=== PATIENT | female | born 1985 | race Asian ===

== ENCOUNTER 2019-12-19 03:07 | Outpatient (CLI) | payer OTHER, SELFPAY ==
[2019-12-23 12:19] LABS: TB Interpretation Negative (Negative)
== END 2019-12-19 03:27 ==
PROVIDERS: PCP Nurse Practitioner Family; Visit Provider Nurse Practitioner Family
DX: Z87.898 Personal history of other specified conditions (principal)
CPT/HCPCS: 86480

== ENCOUNTER 2020-03-05 15:20 | Outpatient (REF) | payer OTHER, SELFPAY ==
[2020-03-07 01:06] LABS: COVID-19 RT-PCR Result NEGATIVE (Negative)
== END 2020-03-05 15:40 ==
LOC: NCHCN 15:20
PROVIDERS: PCP Nurse Practitioner Family; Visit Provider Nurse Practitioner Family
DX: Z20.828 Contact with and (suspected) exposure to other viral communicable diseases (principal)
CPT/HCPCS: U0003

== ENCOUNTER 2020-12-01 16:20 | Outpatient (REF) | payer OTHER, SELFPAY ==
[2020-12-03 12:40] LABS: COVID-19 RT-PCR UVMMC Result Negative (Negative)
== END 2020-12-01 16:21 | disposition home or self-care (01) ==
LOC: NCHCN 16:20
PROVIDERS: PCP Nurse Practitioner Family; Visit Provider Physician Assistant
DX: R05 Cough (principal); Z20.822 Contact with and (suspected) exposure to COVID-19
CPT/HCPCS: U0003

== ENCOUNTER 2021-01-12 20:53 | Outpatient (REF) | payer SELFPAY ==
[2021-01-12 21:13] LABS: Source Nasal/Nares
[2021-01-12 22:03] LABS: COVID-19 PCR Negative (Negative)
== END 2021-01-12 20:54 | disposition home or self-care (01) ==
LOC: LBN 20:53
PROVIDERS: PCP Nurse Practitioner Family; Visit Provider Nurse Practitioner Family
DX: Z20.822 Contact with and (suspected) exposure to COVID-19 (principal)
CPT/HCPCS: 87635

== ENCOUNTER 2022-03-18 15:17 | Outpatient (REF) | payer OTHER, SELFPAY ==
[2022-03-18 17:30] LABS: ALT 24 U/L (14-59); AST 24 U/L (15-37); Albumin 3.6 g/dL (3.4-5.0); Alkaline Phosphatase 96 U/L (46-116); BUN 13 mg/dL (7-18); Bilirubin, Total 0.4 mg/dL (0.2-1.0); CREATININE 0.9 mg/dL (0.55-1.02); Calcium 8.8 mg/dL (8.5-10.1); Calculated LDL 145 mg/dL (<100); Chloride 102 mmol/L (98-107); Cholesterol 219 mg/dL (<200); Estimated GFR 84.97 (mL/min/1.73m2); Glucose 91 mg/dL (74-106); HDL Cholesterol 46 mg/dL (40-60); Potassium 4.2 mmol/L (3.5-5.1); Sodium 136 mmol/L (136-145); Total Protein 7.6 g/dL (6.4-8.2); Triglyceride 142 mg/dL (<150)
== END 2022-03-18 15:18 | disposition home or self-care (01) ==
LOC: NCHCN 15:17
PROVIDERS: PCP Nurse Practitioner Family; Visit Provider Nurse Practitioner Family
DX: Z00.00 Encounter for general adult medical examination without abnormal findings (principal); M25.521 Pain in right elbow; K59.09 Other constipation; Z13.220 Encounter for screening for lipoid disorders
CPT/HCPCS: 80053; 80061

== ENCOUNTER 2023-06-22 12:37 | Outpatient (REF) | payer OTHER, SELFPAY ==
[2023-06-22 15:47] LABS: Abs Immature Grans 0.03 10^3/uL (0.0-0.06); Absolute Basophil Count 0.11 10^3/uL (0.0-0.2); Absolute Eosinophil Count 0.47 10^3/uL (0.0-0.7); Absolute Lymphocyte Count 3.25 10^3/uL (1.2-3.4); Absolute Monocyte Count 0.66 10^3/uL (0.1-0.8); Absolute Neutrophil Count 5.15 10^3/uL (1.2-6.7); Basophils % 1.1; Eosinophils % 4.9; HCT 47.1 % (36.0-46.0); HGB 15.5 g/dL (11.2-15.7); Immature Grans % 0.3; Lymphocytes % 33.6; MCH 27.6 pg (27.0-33.0); MCHC 32.9 % (32.0-36.0); MCV 84 fL (80-95); MPV 10.3 fL (8.0-11.0); Monocytes % 6.8; Neutrophils % 53.3; Platelet Count 350 10^3/uL (130-400); RBC 5.61 10^6/uL (3.93-5.22); RDW 12.4 % (11.7-14.6); RDW-SD 38.1 fL; WBC 9.67 10^3/uL (4.4-10.8)
[2023-06-22 16:12] LABS: Hemoglobin A1C 5.7 % (<5.7)
[2023-06-22 16:19] LABS: Calculated LDL 191 mg/dL (<100); Cholesterol 261 mg/dL (<200); HDL Cholesterol 53 mg/dL (40-60); TSH 4.64 uIU/mL (0.36-3.74); Triglyceride 88 mg/dL (<150)
[2023-06-22 16:37] LABS: FREE T4 1.11 ng/dL (0.76-1.46)
== END 2023-06-22 12:38 | disposition home or self-care (01) ==
LOC: NCHCN 12:37
PROVIDERS: PCP Nurse Practitioner Family; Visit Provider Nurse Practitioner Family
DX: Z30.9 Encounter for contraceptive management, unspecified (principal); Z13.220 Encounter for screening for lipoid disorders
CPT/HCPCS: 80061; 83036; 84439; 84443; 85025

== ENCOUNTER 2025-03-19 10:03 | Outpatient (REF) | payer OTHER, SELFPAY ==
[2025-03-19 15:31] LABS: Abs Immature Grans 0.03 10^3/uL (0.0-0.06); HCT 45.3 % (36.0-46.0); HGB 14.7 g/dL (11.2-15.7); Immature Grans % 0.4 %; MCH 27.9 pg (27.0-33.0); MCHC 32.5 % (32.0-36.0); MCV 86 fL (80-95); MPV 10.5 fL (8.0-11.0); Platelet Count 333 10^3/uL (130-400); RBC 5.27 10^6/uL (3.93-5.22); RDW 12.5 % (11.7-14.6); RDW-SD 39.1 fL; WBC 7.87 10^3/uL (4.4-10.8)
[2025-03-19 15:47] LABS: ALT 27 U/L (14-59); AST 26 U/L (15-37); Albumin 3.7 g/dL (3.4-5.0); Alkaline Phosphatase 101 U/L (46-116); Anion Gap 10.4 mmol/L (3-11); BUN 10 mg/dL (7-18); Bilirubin, Total 0.6 mg/dL (0.2-1.0); CO2 26.6 mmol/L (21.0-32.0); Calcium 9.4 mg/dL (8.5-10.1); Chloride 105 mmol/L (98-107); Estimated GFR 112.75 (mL/min/1.73m2); Glucose 94 mg/dL (74-106); Potassium 5.0 mmol/L (3.5-5.1); Sodium 142 mmol/L (136-145); Total Protein 7.3 g/dL (6.4-8.2)
[2025-03-19 16:01] LABS: Hemoglobin A1C 5.7 % (<5.7)
== END 2025-03-19 10:04 | disposition home or self-care (01) ==
LOC: NCHCN 10:03
PROVIDERS: Visit Provider Student in an Organized Health Care Education/Training Program
DX: R71.8 Other abnormality of red blood cells (principal); R73.03 Prediabetes
CPT/HCPCS: 80053; 83036; 85025